=== PATIENT | female | born 1995 | race Caucasian/White ===

== ENCOUNTER 2019-09-23 15:11 | Observation (INO) ==
[2019-09-23] MEDS ORDERED: Famotidine 20 MG/2 ML VIAL IVP ONE (15:28)
[2019-09-23] MEDS ORDERED: *HR* HYDROmorphone (PF) 1 MG/ML SYRINGE IVP ONE (15:28)
[2019-09-23 16:20] LABS: Basophils # 0.1 K/mcL (0.0-0.2); Basophils % 0.8 %; Eosinophils # 0.2 K/mcL (0.0-0.6); Eosinophils % 2.1 %; Hematocrit 37.2 % (35.3-44.9); Hemoglobin 12.5 g/dL (11.5-15.4); Immature Granulocytes % 0.5 % (0-4); Lymphocytes # 2.6 K/mcL (0.6-4.6); Mean Corpuscular HGB Conc 33.6 g/dL (31.6-35.5); Mean Corpuscular Hemoglobin 28.6 pg (28.0-33.3); Mean Corpuscular Volume 85.1 fL (83.0-100.0); Mean Platelet Volume 10.9 fL (9.4-12.4); Monocytes # 0.4 K/mcL (0.0-1.3); Monocytes % 5.8 %; Neutrophils # 4.2 K/mcL (1.6-8.9); Platelet Count 328 K/mcL (140-400); Red Blood Count 4.37 M/mcL (3.82-4.97); Red Cell Distribution Width 13.8 % (11.5-14.5); Segmented Neutrophils % 55.8 %; White Blood Count 7.6 K/mcL (4.3-11.1)
[2019-09-23 16:21] LABS: Bilirubin,Urine Negative (Negative); Blood,Urine Negative (Negative); Clarity,Urine Cloudy (Clear); Color,Urine Yellow (Yellow); Glucose,Urine (UA) Normal (Normal); Ketones,Urine Negative (Negative); Leukocyte Esterase,Urine Negative (Negative); Nitrite,Urine Negative (Negative); Protein,Urine Negative (Neg-Trace); Specific Gravity,Urine 1.026 (1.010-1.025); Urobilinogen,Urine Normal (Normal)
[2019-09-23 16:46] LABS: Alanine Aminotransferase 246 Units/L (7-52); Albumin 3.4 g/dL (3.5-5.7); Albumin/Globulin Ratio 1.3 (1.1-2.2); Alkaline Phosphatase 124 Units/L (34-104); Amylase 18 Units/L (29-103); Aspartate Amino Transferase 109 Units/L (13-39); BUN/Creatinine Ratio 14 (6-26); Bilirubin,Total 0.8 mg/dL (0.3-1.0); Blood Urea Nitrogen 9 mg/dL (6-20); Calcium 8.3 mg/dL (8.6-10.3); Carbon Dioxide 23 mEq/L (23-29); Chloride 110 mEq/L (98-107); Globulin 2.7 g/dL (2.4-3.5); Glucose 99 mg/dL (70-105); Lipase 20 Units/L (11-82); Magnesium 1.7 mg/dL (1.6-2.6); Osmolality,Calculated 287 (280-300); Potassium 3.6 mEq/L (3.5-5.1); Sodium 139 mEq/L (136-145); Total Protein 6.1 g/dL (6.4-8.9); eGFR For African Americans > 60 (> 60); eGFR For Non-African Americans > 60 (> 60)
[2019-09-23 16:49] LABS: Hyaline Casts,Urine None Seen per lpf (None-Few); Squamous Epithelial Cell,Urine Moderate per lpf (None-Few)
[2019-09-23 16:50] LABS: Yeast,Urine Moderate per hpf (None Seen)
[2019-09-23 16:55] LABS: Bacteria,Urine Few per hpf (None-Few)
[2019-09-23] MEDS ORDERED: Isovue-370 500 ML BOTTLE IVP ONE (16:57)
[2019-09-23] MEDS ORDERED: *HR* FentaNYL (PF) 100 MCG/2 ML VIAL IVP ONE (18:52)
[2019-09-23] MEDS ORDERED: 0.9 % Sodium Chloride 1,000 ML IVC ONE (19:08)
[2019-09-23] MEDS ORDERED: GI Cocktail 40 ML EACH PO ONE (19:33)
[2019-09-23] MEDS ORDERED: Naloxone 0.4 MG/ML INJ IVP PRN (20:00)
[2019-09-23 21:18] LABS: Acetaminophen < 10 mcg/mL (10-20); Alanine Aminotransferase 233 Units/L (7-52); Albumin 3.4 g/dL (3.5-5.7); Albumin/Globulin Ratio 1.3 (1.1-2.2); Alkaline Phosphatase 109 Units/L (34-104); Aspartate Amino Transferase 105 Units/L (13-39); Bilirubin,Direct 0.2 mg/dL (0.0-0.2); Bilirubin,Indirect 0.5 mg/dL (0.0-1.0); Bilirubin,Total 0.7 mg/dL (0.3-1.0); Globulin 2.6 g/dL (2.4-3.5)
[2019-09-23] MEDS: *HR* OxyCODONE Immed Rel 5 MG TABLET PO PRN (21:32)
[2019-09-23] MEDS: Ondansetron 4 MG/2 ML VIAL IVP PRN (21:32)
[2019-09-23 21:40] LABS: Hepatitis B Surface Antigen Nonreactive (Nonreactive)
[2019-09-23 22:09] LABS: Hepatitis A Antibody IgM Nonreactive (Nonreactive)
[2019-09-23] MEDS: Ringers Solution, Lactated 1,000 ML IVC SCH (22:50)
[2019-09-23 23:52] LABS: Hepatitis C Virus Antibody Reactive (Nonreactive)
[2019-09-23] MEDS: *HR* Heparin 5,000 UNIT/ML VIAL SQ SCH (23:58)
[2019-09-23] MEDS ORDERED: Ketorolac 15 MG/ML VIAL IVP ONE (23:59)
[2019-09-24] MEDS: *HR* OxyCODONE Immed Rel 5 MG TABLET PO PRN ×3 (03:54→15:24)
[2019-09-24 04:41] LABS: Basophils % 0.5 %; Eosinophils # 0.2 K/mcL (0.0-0.6); Eosinophils % 3.3 %; Hematocrit 34.8 % (35.3-44.9); Hemoglobin 11.1 g/dL (11.5-15.4); Immature Granulocytes % 0.4 % (0-4); Lymphocytes # 3.4 K/mcL (0.6-4.6); Lymphocytes % 46.2 %; Mean Corpuscular HGB Conc 31.9 g/dL (31.6-35.5); Mean Corpuscular Hemoglobin 28.5 pg (28.0-33.3); Mean Corpuscular Volume 89.2 fL (83.0-100.0); Mean Platelet Volume 11.2 fL (9.4-12.4); Monocytes # 0.5 K/mcL (0.0-1.3); Monocytes % 6.3 %; Neutrophils # 3.2 K/mcL (1.6-8.9); Platelet Count 301 K/mcL (140-400); Red Cell Distribution Width 13.9 % (11.5-14.5); Segmented Neutrophils % 43.3 %; White Blood Count 7.3 K/mcL (4.3-11.1)
[2019-09-24 04:54] LABS: Alanine Aminotransferase 221 Units/L (7-52); Albumin/Globulin Ratio 1.4 (1.1-2.2); Alkaline Phosphatase 105 Units/L (34-104); Aspartate Amino Transferase 105 Units/L (13-39); BUN/Creatinine Ratio 14 (6-26); Bilirubin,Direct 0.2 mg/dL (0.0-0.2); Bilirubin,Indirect 0.4 mg/dL (0.0-1.0); Bilirubin,Total 0.6 mg/dL (0.3-1.0); Blood Urea Nitrogen 10 mg/dL (6-20); Calcium 8.1 mg/dL (8.6-10.3); Carbon Dioxide 23 mEq/L (23-29); Chloride 112 mEq/L (98-107); Globulin 2.2 g/dL (2.4-3.5); Glucose 82 mg/dL (70-105); Magnesium 1.8 mg/dL (1.6-2.6); Osmolality,Calculated 288 (280-300); Potassium 3.6 mEq/L (3.5-5.1); Sodium 140 mEq/L (136-145); Total Protein 5.2 g/dL (6.4-8.9); eGFR For African Americans > 60 (> 60); eGFR For Non-African Americans > 60 (> 60)
[2019-09-24] MEDS: *HR* Heparin 5,000 UNIT/ML VIAL SQ SCH (04:57)
[2019-09-24 05:12] LABS: Platelet Estimate Normal (Normal); Reactive Lymphocytes Present (Not Present)
[2019-09-24] MEDS: Ringers Solution, Lactated 1,000 ML IVC SCH (09:45)
[2019-09-24 10:47] LABS: Amphetamine Screen,Urine Negative ng/mL (Cutoff=1000); Barbiturate Screen,Urine Negative ng/mL (Cutoff=200); Benzodiazepines Screen,Urine Negative ng/mL (Cutoff=200); Cannabinoid Screen,Urine Negative ng/mL (Cutoff = 50); Cocaine Screen,Urine Negative ng/mL (Cutoff= 300); Opiate Screen,Urine Positive ng/mL (Cutoff=300); Phencyclidine Screen,Urine Negative ng/mL (Cutoff=25)
[2019-09-24] MEDS ORDERED: *HR* OxyCODONE Immed Rel 5 MG TABLET PO PRN (13:50)
[2019-09-24] MEDS ORDERED: cefTRIAXone 1,000 MG in Water for inj. (sterile) 10 ML IVPB SCH (14:00)
[2019-09-24] MEDS: Nicotine 21 MG PATCH.TD24 TD SCH (17:05)
[2019-09-25] MEDS: Ondansetron 4 MG/2 ML VIAL IVP PRN ×2 (01:13→21:48)
[2019-09-25] MEDS: *HR* OxyCODONE Immed Rel 5 MG TABLET PO PRN ×4 (01:13→21:40)
[2019-09-25] MEDS: Ringers Solution, Lactated 1,000 ML IVC SCH ×2 (04:24→13:56)
[2019-09-25 06:09] LABS: Basophils # 0.1 K/mcL (0.0-0.2); Basophils % 0.7 %; Eosinophils # 0.4 K/mcL (0.0-0.6); Eosinophils % 4.2 %; Hemoglobin 11.9 g/dL (11.5-15.4); Immature Granulocytes % 0.6 % (0-4); Lymphocytes # 3.6 K/mcL (0.6-4.6); Lymphocytes % 42.1 %; Mean Corpuscular HGB Conc 33.1 g/dL (31.6-35.5); Mean Corpuscular Hemoglobin 28.2 pg (28.0-33.3); Mean Corpuscular Volume 85.3 fL (83.0-100.0); Mean Platelet Volume 11.1 fL (9.4-12.4); Monocytes # 0.5 K/mcL (0.0-1.3); Monocytes % 5.8 %; Platelet Count 309 K/mcL (140-400); Red Blood Count 4.22 M/mcL (3.82-4.97); Red Cell Distribution Width 13.6 % (11.5-14.5); Segmented Neutrophils % 46.6 %; White Blood Count 8.6 K/mcL (4.3-11.1)
[2019-09-25 06:30] LABS: Prothrombin Time 11.8 Seconds (9.4-12.1)
[2019-09-25 08:42] LABS: Alanine Aminotransferase 253 Units/L (7-52); Albumin 3.3 g/dL (3.5-5.7); Albumin/Globulin Ratio 1.4 (1.1-2.2); Alkaline Phosphatase 124 Units/L (34-104); Aspartate Amino Transferase 139 Units/L (13-39); BUN/Creatinine Ratio 14 (6-26); Bilirubin,Total 0.5 mg/dL (0.3-1.0); Blood Urea Nitrogen 10 mg/dL (6-20); Calcium 8.4 mg/dL (8.6-10.3); Carbon Dioxide 25 mEq/L (23-29); Chloride 108 mEq/L (98-107); Globulin 2.4 g/dL (2.4-3.5); Glucose 98 mg/dL (70-105); Osmolality,Calculated 293 (280-300); Sodium 142 mEq/L (136-145); Total Protein 5.7 g/dL (6.4-8.9); eGFR For African Americans > 60 (> 60); eGFR For Non-African Americans > 60 (> 60)
[2019-09-25] MEDS: Nicotine 21 MG PATCH.TD24 TD SCH (08:42)
[2019-09-25] MEDS ORDERED: *HR* OxyCODONE Immed Rel 5 MG TABLET PO ONE (18:36)
[2019-09-26] MEDS: Ketorolac 15 MG/ML VIAL IVP PRN ×2 (02:14→09:41)
[2019-09-26] MEDS: Ringers Solution, Lactated 1,000 ML IVC SCH (03:54)
[2019-09-26 06:34] LABS: Alanine Aminotransferase 310 Units/L (7-52); Albumin 3.5 g/dL (3.5-5.7); Albumin/Globulin Ratio 1.3 (1.1-2.2); Alkaline Phosphatase 139 Units/L (34-104); Aspartate Amino Transferase 178 Units/L (13-39); BUN/Creatinine Ratio 12 (6-26); Bilirubin,Total 0.6 mg/dL (0.3-1.0); Blood Urea Nitrogen 11 mg/dL (6-20); Calcium 8.7 mg/dL (8.6-10.3); Carbon Dioxide 26 mEq/L (23-29); Chloride 105 mEq/L (98-107); Globulin 2.7 g/dL (2.4-3.5); Glucose 112 mg/dL (70-105); Osmolality,Calculated 292 (280-300); Potassium 3.5 mEq/L (3.5-5.1); Sodium 141 mEq/L (136-145); Total Protein 6.2 g/dL (6.4-8.9); eGFR For African Americans > 60 (> 60); eGFR For Non-African Americans > 60 (> 60)
[2019-09-26] MEDS: Nicotine 21 MG PATCH.TD24 TD SCH (08:54)
[2019-09-26 10:31] VITALS: BP 129/67
== END 2019-09-26 11:30 | disposition home or self-care (01) ==
LOC: 3ANU 15:11 → EMEROOARM 15:11 → SUATTDRO 20:05 → 3ANU 21:09
PROVIDERS: ADMIT Pharmacist; ATTEND Internal Medicine